=== PATIENT | male | born 2000 | race African-American/Black ===

== ENCOUNTER 2019-05-13 14:26 | Emergency (ER) | payer MEDICAID, OTHER ==
[~2019-05-13] VITALS: Ht 193 cm; Wt 60.8 kg
[2019-05-13 16:09] VITALS: BP 123/63
== END 2019-05-13 17:03 | disposition home or self-care (01) ==
LOC: ER 14:36
DX: S52.615A Nondisplaced fracture of left ulna styloid process, initial encounter for closed fracture (principal); S60.221A Contusion of right hand, initial encounter; Y04.0XXA Assault by unarmed brawl or fight, initial encounter; Y93.01 Activity, walking, marching and hiking; Y92.89 Other specified places as the place of occurrence of the external cause; Y99.8 Other external cause status
CPT/HCPCS: 73110; 73130